=== PATIENT | male | born 1965 | race Hispanic/Latino ===

== ENCOUNTER 2021-05-15 08:57 | Outpatient (CLI) | payer BC | END 2021-05-15 08:58 | disposition home or self-care (01) | LOC: CSHMRI 08:57 | PROVIDERS: ATTEND Pain Medicine Pain Medicine | DX: M96.1 Postlaminectomy syndrome, not elsewhere classified (principal); Z98.890 Other specified postprocedural states; M47.816 Spondylosis without myelopathy or radiculopathy, lumbar region | CPT/HCPCS: 72158 ==